=== PATIENT | male | born 1985 | race American Indian/Alaskan Native ===

== ENCOUNTER 2019-07-26 00:59 | Emergency (ER) | payer SELFPAY ==
[2019-07-26 01:53] VITALS: BP 137/95
[2019-07-26] MEDS ORDERED: BACTRIM DS PO ONE (05:38)
[2019-07-26] MEDS ORDERED: XYLOCAINE 1% MPF 5 mL INFILTRATI ONE (05:38)
[2019-07-26] MEDS ORDERED: TYLENOL PO ONE (05:38)
[2019-07-26] MEDS ORDERED: IBUPROFEN PO ONE (05:38)
--- NOTE | 2019-07-26 07:24 | Emergency Department Report ---
ED General Adult HPI - General Chief complaint: Skin/Abscess/Foreign Body Stated complaint: ABCESSE ON FACE Source: patient Mode of arrival: Ambulatory Limitations: No Limitations - History of Present Illness Initial comments: Patient is a 33-year-old -[place] male with no past medical history presents with the ED with complaint of acute onset painful swollen erythematous macular papular rash with fluctuance on the right cheek for the last 5 days worsened last 24 hours. Patient denies fever, chills, nausea, vomiting, headache, dizziness, chest pain or shortness of breath. Patient states that the symptoms began after he shaved his beared. MD Complaint: right cheek swollen abscess -: Sudden Location: face (right cheek) Radiation: non-radiation Severity scale (0 -10): 7 Quality: aching, sharp Consistency: constant Improves with: none Worsens with: none Associated Symptoms: denies other symptoms. denies: confusion, cough, diaphoresis, fever/chills, headaches, malaise, nausea/vomiting, seizure, shortness of breath, syncope Treatments Prior to Arrival: none - Related Data Previous Rx's Medication Instructions Recorded Last Taken Type Acetaminophen/Codeine [Tylenol 1 tab PO Q6H PRN #12 tab 07/26/19 Unknown Rx /Codeine # 3 tab] Ibuprofen [Motrin] 600 mg PO Q8H PRN #20 tablet 07/26/19 Unknown Rx cephALEXin [Keflex] 500 mg PO Q6HR #40 capsule 07/26/19 Unknown Rx Allergies Allergy/AdvReac Type Severity Reaction Status Date / Time No Known Allergies Allergy Verified 07/26/19 01:03 ED Review of Systems ROS: Stated complaint: ABCESSE ON FACE Other details as noted in HPI Constitutional: denies: chills, fever Eyes: denies: eye pain, eye discharge, vision change ENT: other (Swollen painful erythematous fluctuant rash on right cheek). denies: ear pain, throat pain Respiratory: denies: cough, shortness of breath, wheezing Cardiovascular: denies: chest pain, palpitations Endocrine: no symptoms reported Gastrointestinal: denies: abdominal pain, nausea, diarrhea Genitourinary: denies: urgency, dysuria Musculoskeletal: denies: back pain, joint swelling, arthralgia Skin: rash (Swollen painful erythematous fluctuant maculopapular rash on right cheek), change in color. denies: lesions Neurological: denies: headache, weakness, paresthesias Psychiatric: denies: anxiety, depression Hematological/Lymphatic: denies: easy bleeding, easy bruising ED Past Medical Hx - Social History Smoking Status: Former Smoker - Medications Home Medications: Home Medications Medication Instructions Recorded Confirmed Last Taken Type Acetaminophen/Codeine [Tylenol 1 tab PO Q6H PRN #12 tab 07/26/19 Unknown Rx /Codeine # 3 tab] Ibuprofen [Motrin] 600 mg PO Q8H PRN #20 tablet 07/26/19 Unknown Rx cephALEXin [Keflex] 500 mg PO Q6HR #40 capsule 07/26/19 Unknown Rx ED Physical Exam - General Limitations: No Limitations General appearance: alert, in no apparent distress - Head Head exam: Present: atraumatic, normocephalic, normal inspection - Eye Eye exam: Present: normal appearance, PERRL, EOMI - ENT ENT exam: Present: normal exam, normal orophraynx, mucous membranes moist, TM's normal bilaterally, normal external ear exam, other (Swollen moderately tender erytheamtous maculopapular fluctuant rash on right cheek) - Neck Neck exam: Present: normal inspection, full ROM. Absent: tenderness, meningismus, lymphadenopathy, thyromegaly - Respiratory Respiratory exam: Present: normal lung sounds bilaterally. Absent: respiratory distress, wheezes, rales, rhonchi, chest wall tenderness, accessory muscle use, decreased breath sounds, prolonged expiratory - Cardiovascular Cardiovascular Exam: Present: regular rate, normal rhythm, normal heart sounds. Absent: systolic murmur, diastolic murmur, rubs, gallop - GI/Abdominal GI/Abdominal exam: Present: soft, normal bowel sounds. Absent: distended, tenderness, rebound, hyperactive bowel sounds, hypoactive bowel sounds, organomegaly, mass, pulsatile mass, hernia - Rectal Rectal exam: Present: deferred - Extremities Exam Extremities exam: Present: normal inspection, full ROM, normal capillary refill. Absent: pedal edema, joint swelling - Back Exam Back exam: Present: normal inspection, full ROM. Absent: tenderness, CVA tenderness (L), muscle spasm, paraspinal tenderness, vertebral tenderness - Neurological Exam Neurological exam: Present: alert, oriented X3, CN II-XII intact, normal gait, reflexes normal - Psychiatric Psychiatric exam: Present: normal affect, normal mood - Skin Skin exam: Present: warm, dry, intact, normal color, rash (Erythematous maculopapular fluctuant tender rash on right cheek) ED Course Vital Signs 07/26/19 01:51 Temperature 97.9 F Pulse Rate 67 Respiratory 18 Rate Blood Pressure 137/95 O2 Sat by Pulse 96 Oximetry - Reevaluation(s) Reevaluation #1: 07/26/19 20:24 This is a 33-year-old -[place] male presented to the ED with swollen, painful, erythematous maculopapular fluctuant rash in the right cheek. In the ED, patient is alert and oriented 3 and is not in distress. Patient was cait ated for pain and given oral antibiotics. The right cheek swollen fluctuant bursa was cleaned and incised and drained per protocol. Patient tolerated the procedure well and was discharged home on pain medications and oral antibiotics, and otherwise to follow-up with his primary care physician in 7-10 days for reevaluation or return to the ED immediately if symptoms get worse. - I & D Right Cheek Type of Procedure: Simple Site: right cheek Blade Size: 11 I & D Procedure: betadine prep, sterile drapes applied, sterile dressing applied, gauze wick placed Progress: Patient tolerated procedure well. Patient advised to follow-up with his primary care physician in 5-7 days for reevaluation or return to the ED immediately if symptoms get worse. ED Medical Decision Making - Medical Decision Making This is a 33-year-old -[place] male presented to the ED with swollen, painful, erythematous maculopapular fluctuant rash in the right cheek. In the ED, patient is alert and oriented 3 and is not in distress. Patient was treated for pain and given oral antibiotics. The right cheek swollen fluctuant bursa was cleaned and incised and drained per protocol. Patient tolerated the procedure well and was discharged home on pain medications and oral antibiotics, and otherwise to follow-up with his primary care physician in 7-10 days for reevaluation or return to the ED immediately if symptoms get worse. - Differential Diagnosis facial cellulitis; acute folliculitis; cutaneous abscess Critical care attestation.: If time is entered above; I have spent that time in minutes in the direct care of this critically ill patient, excluding procedure time. ED Disposition Clinical Impression: Facial cellulitis, Acute folliculitis Disposition: - TO HOME OR SELFCARE Is pt being admited?: No Does the pt Need Aspirin: No Condition: Stable Instructions: Cellulitis (ED), Folliculitis (ED) Additional Instructions: Take medications with food, drink plenty of fluids and follow-up with your primary care physician in 5-7 days for reevaluation. Return to the ED immediately if symptoms get worse. Prescriptions: cephALEXin [Keflex] 500 mg PO Q6HR #40 capsule Ibuprofen [Motrin] 600 mg PO Q8H PRN #20 tablet PRN Reason: Pain Acetaminophen/Codeine [Tylenol /Codeine # 3 tab] 1 tab PO Q6H PRN #12 tab PRN Reason: Pain , Severe (7-10) Referrals: PRIMARY CARE,MD [Primary Care Provider] - 3-5 Days Forms: Work/School Release Form(ED) Time of Disposition: 07:22 Print Language: MALAYSIAN
== END 2019-07-26 08:03 | disposition home or self-care (01) ==
LOC: ED 00:59
DX: L03.211 Cellulitis of face (principal); L73.9 Follicular disorder, unspecified; Z79.899 Other long term (current) drug therapy
CPT/HCPCS: 99282